=== PATIENT | male | born 1950 | race Caucasian/White ===

== ENCOUNTER 2020-09-28 07:59 | Day surgery (SDC) | payer OTHER, SELFPAY ==
[2020-09-22 09:57] VITALS: BMI 25.7
--- NOTE | 2020-09-24 11:57 | MHC.SHP ---
Pre-Procedural Eval Section A The patient is an INPATIENT: No The History & Physical has been completed within 30 days and I have reviewed it.: Yes Section B Chief Complaint: Cataracts Right Eye Allergies: Allergies Allergy/AdvReac Type Severity Reaction Status Date / Time No Known Allergies Allergy Verified 09/22/20 10:12 Plan Diagnosis/Plan: Unchanged Patient has been examined and remains a candidate for the planned procedure
--- NOTE | 2020-09-25 12:02 | HO.ANESPROP2 ---
Documented by User: Radha Lynn 09/25/20 13:07 HPI - Anesthesia Eval Consult details Narrative: 69yo M for Cataract Extraction No prev cataract PCP cleared [facility] Past Medical History Medical History Arthritis COPD (chronic obstructive pulmonary disease) Elevated cholesterol History of anxiety HTN (hypertension) Surgical History Surgical History H/O colonoscopy Hx of appendectomy Hx of tonsillectomy Social History Social History Alcohol intake: never Smoking Status: Former smoker Tobacco Type: Cigarette Smoking Quit Date: 1994 Use of substances other than those prescribed or required for medical reasons: No Have you been hit, kicked, punched, or otherwise hurt by someone within the past year? If so, by whom?: No Advance Directives Information Provided: No Recently lost weight without trying: No Meds Allergies Allergy/AdvReac Type Severity Reaction Status Date / Time No Known Allergies Allergy Verified 09/28/20 08:01 Home Medications Medication Instructions Recorded Confirmed Type albuterol sulfate [ProAir HFA] 2 puff INHALATION Q4-6H PRN 09/22/20 09/28/20 History buspirone 5 mg PO QID 09/22/20 09/28/20 History citalopram 10 mg PO DAILY 09/22/20 09/28/20 History glucosamine sulfate [Glucosamine] 500 mg PO DAILY 09/22/20 09/28/20 History metoprolol succinate 100 mg PO DAILY 09/22/20 09/28/20 History omega-3 fatty acids-vitamin E 1 cap PO DAILY 09/22/20 09/28/20 History [Fish Oil] simvastatin 40 mg PO BEDTIME 09/22/20 09/28/20 History tamsulosin 0.4 mg PO DAILY 09/22/20 09/28/20 History Exam Exam Date and Time: September 25, 2020 1202 Height,Weight and Vital Signs: Height 6 ft Weight 86.183 kg Assessment and Plan Assessment Anesthesia Assessment: Chart Reviewed Documented by User: Robel Horowitz 09/28/20 09:01 [facility] [place] Past Medical History Medical History Arthritis COPD (chronic obstructive pulmonary disease) Elevated cholesterol History of anxiety HTN (hypertension) Surgical History Surgical History H/O colonoscopy Hx of appendectomy Hx of tonsillectomy Social History Social History Alcohol intake: never Smoking Status: Former smoker Tobacco Type: Cigarette Smoking Quit Date: 1994 Use of substances other than those prescribed or required for medical reasons: No Have you been hit, kicked, punched, or otherwise hurt by someone within the past year? If so, by whom?: No Advance Directives Information Provided: No Recently lost weight without trying: No Meds Allergies Allergy/AdvReac Type Severity Reaction Status Date / Time No Known Allergies Allergy Verified 09/28/20 08:01 Home Medications Medication Instructions Recorded Confirmed Type albuterol sulfate [ProAir HFA] 2 puff INHALATION Q4-6H PRN 09/22/20 09/28/20 History buspirone 5 mg PO QID 09/22/20 09/28/20 History citalopram 10 mg PO DAILY 09/22/20 09/28/20 History glucosamine sulfate [Glucosamine] 500 mg PO DAILY 09/22/20 09/28/20 History metoprolol succinate 100 mg PO DAILY 09/22/20 09/28/20 History omega-3 fatty acids-vitamin E 1 cap PO DAILY 09/22/20 09/28/20 History [Fish Oil] simvastatin 40 mg PO BEDTIME 09/22/20 09/28/20 History tamsulosin 0.4 mg PO DAILY 09/22/20 09/28/20 History Exam Airway Mallampati Class: II TM Dist: >3cm Neck ROM: Full Loose/Missing/Broken Teeth: No (Many crowns) Heart: [id number] Lungs: cta b/l Assessment and Plan Assessment Anesthesia Assessment: Anesthesia Plan Discussed, PAT Visit and Chart Reviewed Final Anesthetic Review NPO: Yes ASA Class: II Final Preanesthetic Review: No Changes in Pt Med Stat, Meds/Allgs Chart Reviewed, Consent Obtained/Reviewed and Anes Risks/Benef Reviewed Patient Risk: Low Procedure Risk: Low Assessment/Block/Sedation in SS: Assess/Block/Sedation-SS Anesthetic Plan Anesthetic Plan: MAC: Disposition: Standard PACU
[2020-09-28 08:02] VITALS: BP 152/86; PULSE 61; RESP 16; TEMP 36.7; O2SAT 94
[2020-09-28] MEDS: Lactated Ringers 500 ML 50 ML IV (08:21)
[2020-09-28] MEDS: Tetracaine HCl/PF 0.5% Oph Sol 4 ML DROPS 1 DROP EYE-RIGHT (08:22)
[2020-09-28] MEDS: Tropicamide 1 % Ophth Sol 3 ML BTL 1 DROP EYE-RIGHT ×3 (08:24→08:32)
[2020-09-28] MEDS: Phenylephrine HCL 2.5% Oph SoL 2 ML BOTTLE 1 DROP EYE-RIGHT ×3 (08:27→08:36)
[2020-09-28 09:41] VITALS: BP 137/81; PULSE 63; RESP 12; TEMP 36.2; O2SAT 96
--- NOTE | 2020-09-28 09:41 | HO.PNOPHT ---
Ophthalmology Procedure Procedure Date of Service: 09/28/20 Ophthalmology Viscoelastic: Sweetie Rincont Dual Pack Pro Ophthalmology Lenses: TECVU [id number] (20) Procedure Notes: PREOPERATIVE DIAGNOSIS: Decreased visual acuity right eye secondary to cataract POSTOPERATIVE DIAGNOSIS: Same PROCEDURE: Right cataract extraction with intraocular lens insertion SURGEON: Narayan José M.D. ANESTHESIA: Topical/MAC ESTIMATED BLOOD LOSS: None COMPLICATIONS: None After obtaining informed consent, the patient was brought to the operating room suite and placed in the supine position. After adequate sedation per anesthesia, topical drops of Tetracaine were given to the right eye. The eye was then prepped and draped in the usual sterile fashion. The operating room microscope was then positioned over the operative eye and a lid speculum placed. A paracentesis was created. Viscoelastic was then instilled into the anterior chamber. A three plane incision was then created temporally, utilizing a 2.85 mm keratome. Capsulotomy forceps were then utilized to create a circular tear capsulotomy. Hydrodissection and hydrodelineation were carried out until adequate mobilization of the nucleus occurred. Phacoemulsification was then utilized to remove the dense central nucleus followed by removal of the cortical material utilizing the automated aspiration irrigation unit. Viscoelastic was instilled into the posterior capsular bag followed by placement of a posterior chamber intraocular lens without difficulty. The residual Viscoelastic was then removed utilizing the automated IA machine. The wound was checked and found to be watertight. The patient tolerated the procedure well and the lid speculum was removed. Intracameral injection of Vigamox 0.1 mL followed by a subtenon injection of Kenalog-40 0.2 mL were administered. The patient will be seen in the a.m.
--- NOTE | 2020-09-28 12:24 | HO.POSTANES ---
Post Anesthesia Evaluation Post Anesthesia Evaluation Vital Signs: Vital Signs Temp Pulse Resp BP Pulse Ox 09/28/20 09:41 97.1 F 63 12 137/81 96 09/28/20 08:02 98.1 F 61 16 152/86 H 94 Anesthesia: Monitored Mental Status: Awake Pain Control: Satisfactory Nausea/Vomiting: None Hydration: Adequate Anesthesia-Related Issues: No Anes. Related Issues
== END 2020-09-28 09:55 | disposition home or self-care (01) ==
PROVIDERS: PCP Internal Medicine; Visit Provider Ophthalmology
PROC: (CPT 66985; principal; 2020-09-28 09:00)
DX: H25.11 Age-related nuclear cataract, right eye (principal)
CPT/HCPCS: 66984; J2250; J3010; J3300; V2632

== ENCOUNTER 2020-10-05 07:40 | Day surgery (SDC) | payer OTHER, SELFPAY ==
[2020-09-22 10:17] VITALS: BMI 25.7
--- NOTE | 2020-10-01 08:10 | MHC.SHP ---
Pre-Procedural Eval Section A The patient is an INPATIENT: No The History & Physical has been completed within 30 days and I have reviewed it.: Yes Section B Chief Complaint: Cataracts Left Eye Allergies: Allergies Allergy/AdvReac Type Severity Reaction Status Date / Time No Known Allergies Allergy Verified 09/28/20 08:01 Plan Diagnosis/Plan: Unchanged Patient has been examined and remains a candidate for the planned procedure
--- NOTE | 2020-10-02 10:30 | HO.ANESPROP2 ---
Documented by User: Radha Lynn 10/02/20 10:35 HPI - Anesthesia Eval Consult details Narrative: 69yo M for Cataract Extraction PCP cleared 1st eye done 09/28/20; Fent 50, Midaz 1 PMFSH Past Medical History Medical History Arthritis COPD (chronic obstructive pulmonary disease) Elevated cholesterol History of anxiety HTN (hypertension) Surgical History Surgical History H/O colonoscopy Hx of appendectomy Hx of tonsillectomy Social History Social History Alcohol intake: never Smoking Status: Former smoker Tobacco Type: Cigarette Smoked in Last 30 Days: No Smoking Quit Date: 1994 Use of substances other than those prescribed or required for medical reasons: No Have you been hit, kicked, punched, or otherwise hurt by someone within the past year? If so, by whom?: No Advance Directives Information Provided: No Recently lost weight without trying: No Meds Allergies Allergy/AdvReac Type Severity Reaction Status Date / Time No Known Allergies Allergy Verified 09/28/20 08:01 Home Medications Medication Instructions Recorded Confirmed Type albuterol sulfate [ProAir HFA] 2 puff INHALATION Q4-6H PRN 09/22/20 09/28/20 History buspirone 5 mg PO QID 09/22/20 09/28/20 History citalopram 10 mg PO DAILY 09/22/20 09/28/20 History glucosamine sulfate [Glucosamine] 500 mg PO DAILY 09/22/20 09/28/20 History metoprolol succinate 100 mg PO DAILY 09/22/20 09/28/20 History omega-3 fatty acids-vitamin E 1 cap PO DAILY 09/22/20 09/28/20 History [Fish Oil] simvastatin 40 mg PO BEDTIME 09/22/20 09/28/20 History tamsulosin 0.4 mg PO DAILY 09/22/20 09/28/20 History Exam Exam Date and Time: October 02, 2020 1030 Height,Weight and Vital Signs: Height 6 ft Weight 86.183 kg Assessment and Plan Assessment Anesthesia Assessment: Chart Reviewed Documented by User: Maru Rosales 10/05/20 08:27 [facility] Past Medical History Medical History Arthritis COPD (chronic obstructive pulmonary disease) Elevated cholesterol History of anxiety HTN (hypertension) Surgical History Surgical History H/O colonoscopy Hx of appendectomy Hx of tonsillectomy Social History Social History Alcohol intake: never Smoking Status: Former smoker Tobacco Type: Cigarette Smoked in Last 30 Days: No Smoking Quit Date: 1994 Use of substances other than those prescribed or required for medical reasons: No Have you been hit, kicked, punched, or otherwise hurt by someone within the past year? If so, by whom?: No Advance Directives Information Provided: No Recently lost weight without trying: No Meds Allergies Allergy/AdvReac Type Severity Reaction Status Date / Time No Known Allergies Allergy Verified 09/28/20 08:01 Home Medications Medication Instructions Recorded Confirmed Type albuterol sulfate [ProAir HFA] 2 puff INHALATION Q4-6H PRN 09/22/20 09/28/20 History buspirone 5 mg PO QID 09/22/20 09/28/20 History citalopram 10 mg PO DAILY 09/22/20 09/28/20 History glucosamine sulfate [Glucosamine] 500 mg PO DAILY 09/22/20 09/28/20 History metoprolol succinate 100 mg PO DAILY 09/22/20 09/28/20 History omega-3 fatty acids-vitamin E 1 cap PO DAILY 09/22/20 09/28/20 History [Fish Oil] simvastatin 40 mg PO BEDTIME 09/22/20 09/28/20 History tamsulosin 0.4 mg PO DAILY 09/22/20 09/28/20 History Exam Airway Mallampati Class: I (Caps laterally) TM Dist: >3cm Neck ROM: Full Heart: RRR Lungs: CTA BL Assessment and Plan Assessment Anesthesia Assessment: Anesthesia Plan Discussed and Chart Reviewed Final Anesthetic Review NPO: Yes ASA Class: III Final Preanesthetic Review: Meds/Annalisa Chart Reviewed and Consent Obtained/Reviewed Patient Risk: Low Procedure Risk: Low Anesthetic Plan Anesthetic Plan: MAC: Disposition: Standard PACU
[2020-10-05] MEDS: Tetracaine HCl/PF 0.5% Oph Sol 4 ML DROPS 1 DROP EYE-LEFT (08:18)
[2020-10-05] MEDS: Tropicamide 1 % Ophth Sol 3 ML BTL 1 DROP EYE-LEFT ×3 (08:19→08:31)
[2020-10-05] MEDS: Phenylephrine HCL 2.5% Oph SoL 2 ML BOTTLE 1 DROP EYE-LEFT ×3 (08:22→08:33)
[2020-10-05 09:33] VITALS: PULSE 57; RESP 14; TEMP 36.1; O2SAT 96
--- NOTE | 2020-10-05 09:33 | HO.PNOPHT ---
Ophthalmology Procedure Procedure Date of Service: 10/05/20 Ophthalmology Viscoelastic: Healon Duet Dual Pack Pro Ophthalmology Lenses: TECVU [id number] (20) Procedure Notes: PREOPERATIVE DIAGNOSIS: Decreased visual acuity left eye secondary to cataract POSTOPERATIVE DIAGNOSIS: Same PROCEDURE: Left cataract extraction with intraocular lens insertion SURGEON: Narayan José M.D. ANESTHESIA: Topical/MAC ESTIMATED BLOOD LOSS: None COMPLICATIONS: None After obtaining informed consent, the patient was brought to the operation room suite and placed in the supine position. After adequate sedation per anesthesia, topical drops of Tetracaine were given to the left eye. The eye was then prepped and draped in the usual sterile fashion. The operating room microscope was then positioned over the operative eye and a lid speculum placed. A paracentesis was created. Viscoelastic was then instilled into the anterior chamber. A three plane incision was then created temporally, utilizing a 2.85 mm keratome. Capsulotomy forceps were then utilized to create a circular tear capsulotomy. Hydrodissection and hydrodelineation were carried out until adequate mobilization of the nucleus occurred. Phacoemulsification was then utilized to remove the dense central nucleus followed by removal of the cortical material utilizing the automated aspiration irrigation unit. Viscoat elastic was instilled into the posterior capsular bag followed by placement of a posterior chamber intraocular lens without difficulty. The residual Viscoat elastic was then removed utilizing the automated IA machine. The wound was check and found to be watertight. The patient tolerated the procedure well and the lid speculum was removed. Intracameral injection of Vigamox 0.1 mL followed by a subtenon injection of Kenalog-40 0.2 mL were administered. The patient will be seen in the a.m.
--- NOTE | 2020-10-05 09:35 | HO.POSTANES ---
Post Anesthesia Evaluation Post Anesthesia Evaluation Vital Signs: 146/87, hr 56, rr 14, sats 94 Anesthesia: Monitored Mental Status: Awake Pain Control: Satisfactory Nausea/Vomiting: None Hydration: Adequate Anesthesia-Related Issues: No Anes. Related Issues
== END 2020-10-05 09:53 | disposition home or self-care (01) ==
PROVIDERS: PCP Internal Medicine; Visit Provider Ophthalmology
PROC: (CPT 66985; principal; 2020-10-05 09:10)
DX: H25.12 Age-related nuclear cataract, left eye (principal); I10 Essential (primary) hypertension; Z79.899 Other long term (current) drug therapy
CPT/HCPCS: 66984; J2250; J3010; J3300; V2632